=== PATIENT | female | born 1960 | race Caucasian/White ===

== ENCOUNTER → 2017-12-21 | Outpatient (CLI) | payer BC ==
[~2017-12-21] MED LIST: ATIVAN0.5 MG PO; BENADRYL25 MG PO; INDOCIN50 MG PO; PREDNICOT20 MG PO; ZOLOFT50 MG PO
== END | disposition home or self-care (01) ==
LOC: ORTHO 03:34
DX: M17.11 Unilateral primary osteoarthritis, right knee (principal)

== ENCOUNTER → 2020-06-08 | Outpatient (CLI) | payer BC | END | disposition home or self-care (01) | LOC: COVID19 09:25 | PROVIDERS: ATTEND Internal Medicine | DX: U07.1 COVID-19 (principal) ==

== ENCOUNTER 2021-04-21 05:25 | Emergency (ER) | payer BC ==
[2021-04-21] MEDS ORDERED: METHOCARBAMOL750 M1 PO ×2 (05:36)
[2021-04-21] MEDS ORDERED: NAPROXEN250 MG PO ×2 (05:36)
== END 2021-04-21 05:45 | disposition home or self-care (01) ==
LOC: ED 05:25
DX: S39.012A Strain of muscle, fascia and tendon of lower back, initial encounter (principal); Z91.041 Radiographic dye allergy status; Z79.899 Other long term (current) drug therapy; X58.XXXA Exposure to other specified factors, initial encounter; Y93.89 Activity, other specified; Y92.89 Other specified places as the place of occurrence of the external cause; Y99.8 Other external cause status

== ENCOUNTER 2022-08-07 04:13 | Emergency (ER) | payer BC ==
[~2022-08-07] VITALS: Ht 157.4 cm; Wt 114.8 kg
[~2022-08-07 04:13] MED LIST changes: +METHOCARBAMOL750 M1 PO; +NAPROXEN250 MG PO
[2022-08-07] MEDS ORDERED: PREDNISONE20 M1 PO (04:50)
[2022-08-07] MEDS ORDERED: AMOX-CLAV 875-1 EACH PO (04:50)
== END 2022-08-07 05:24 | disposition home or self-care (01) ==
LOC: ED 04:13
DX: S16.1XXA Strain of muscle, fascia and tendon at neck level, initial encounter (principal); H66.91 Otitis media, unspecified, right ear; Z91.041 Radiographic dye allergy status; Z98.890 Other specified postprocedural states; X50.1XXA Overexertion from prolonged static or awkward postures, initial encounter; Y93.89 Activity, other specified; Y92.89 Other specified places as the place of occurrence of the external cause; Y99.0 Civilian activity done for income or pay